=== PATIENT | male | born 1990 | race Caucasian/White ===

== ENCOUNTER 2017-02-19 19:55 | Emergency (ER) | payer MEDICAID | END 2017-02-19 20:15 | disposition home or self-care (01) | LOC: E/R 20:15 | DX: H01.001 Unspecified blepharitis right upper eyelid (principal); H10.021 Other mucopurulent conjunctivitis, right eye | CPT/HCPCS: 99284; Z7502 ==

== ENCOUNTER 2017-05-17 15:33 | Emergency (ER) | payer MEDICAID ==
[2017-05-17] MEDS: LIDOCAINE 1%/EPI (1:100,000) (MDV) 20 ML INJ (17:56)
[2017-05-17] MEDS: LIDOCAINE 1%/EPI 30 ML INJ INJ (17:56)
== END 2017-05-17 18:42 | disposition home or self-care (01) ==
LOC: E/R 15:33
DX: S01.81XA Laceration without foreign body of other part of head, initial encounter (principal); F17.210 Nicotine dependence, cigarettes, uncomplicated; Y04.8XXA Assault by other bodily force, initial encounter; Y92.59 Other trade areas as the place of occurrence of the external cause
CPT/HCPCS: 12013; 70450; 99284-25